=== PATIENT | female | born 1940 | race Two or more races ===

== ENCOUNTER → 2021-02-19 08:00 | Outpatient (CLI) | payer OTHER ==
[~2021-02-19] VITALS: Ht 167.6 cm; Wt 90.3 kg
[~2021-02-19 08:00] MED LIST: COZAAR25 MG PO; PEPCID AC20 MG PO; TYLENOL PO; VITAMIN D3 PO
== END | disposition home or self-care (01) ==
LOC: LAB 08:00 → EDSTATUS 02-26 07:30 → SURH 02-26 07:30
PROVIDERS: ATTEND Orthopaedic Surgery Sports Medicine
DX: M17.11 Unilateral primary osteoarthritis, right knee (principal); Z20.828 Contact with and (suspected) exposure to other viral communicable diseases; Z01.810 Encounter for preprocedural cardiovascular examination; Z01.812 Encounter for preprocedural laboratory examination; Z01.811 Encounter for preprocedural respiratory examination

== ENCOUNTER 2022-12-26 07:30 | Inpatient (IN) | payer OTHER ==
[~2022-12-26] VITALS: Ht 175.3 cm; Wt 90.7 kg
[~2022-12-26 07:30] MED LIST changes: +BACLOFEN20 MG; +BACTRIM DS TAB1 EACH PO; +CRESTOR5 MG PO; +INTEGRA PLUS C1 EACH PO; +MAXIMUM D3325 MCG; +PEPCID40 MG PO; +ROSUVASTATIN CA10 MG; +SSD25 GM; +TRAMADOL HCL50 MG PO; +XARELTO10 MG PO
[2022-12-26] MEDS ORDERED: PROTONIX40 MG PO (10:15)
[2022-12-31] MEDS ORDERED: MAXIMUM D3325 MCG (08:58)
[2023-01-01] MEDS ORDERED: INTEGRA PLUS C1 EACH PO (06:29)
[2023-01-01] MEDS ORDERED: BACTRIM DS TAB1 EACH PO (06:29)
[2023-01-01] MEDS ORDERED: XARELTO10 MG PO (06:29)
== END 2023-01-01 13:16 | disposition home or self-care (01) | DRG 470 ==
LOC: O/R 12-30 07:01 → SURH 12-30 07:01
PROVIDERS: ADMIT Orthopaedic Surgery Sports Medicine; ATTEND Orthopaedic Surgery Sports Medicine
PROC: 0SRD0J9 Replacement of Left Knee Joint with Synthetic Substitute, Cemented, Open Approach (ICD-10-PCS; principal; 2022-12-30 10:15)
DX: M17.12 Unilateral primary osteoarthritis, left knee (principal); I10 Essential (primary) hypertension; D69.6 Thrombocytopenia, unspecified